=== PATIENT | male | born 1945 | race Caucasian/White ===

== ENCOUNTER → 2021-08-20 | Day surgery (SDC) | payer OTHER, BC ==
[~2021-08-20] VITALS: Ht 177.8 cm; Wt 73.0 kg
[~2021-08-20] MED LIST: FLONASE 0.05%50 MCG NARES; MULTI VITAMIN1 EACH PO; PROAIR HFA8.5 GM INH; TRAMADOL 50 MG50 MG PO; XARELTO20 MG PO
[2021-08-20 10:38] VITALS: BP 105/67
[2021-08-20 14:14] VITALS: BP 105/67
--- NOTE | 2021-08-22 11:43 | O ---
[facility] [place] [address] OPERATIVE REPORT Name: LEONIDAS JARA Room #: REG [facility]..#: [id number] Admission: 08/20/21 Attend Phys: Dexter Centeno MD Discharge: Date of : 41 Report #: [id number] THIS REPORT FOR: cc: Dexter Centeno MD,[facility] Dexter Centeno MD ~ cc: Clem Irving DATE OF SERVICE: 08/20/2021 PREOPERATIVE DIAGNOSES: 1. Basal cell carcinoma, left external ear. 2. Mohs defect, left external ear. PROCEDURE PERFORMED: 1. Adjacent tissue transfer, left ear 10-30 square cm, code 27101. 2. Scar release of the face and ear, code 45147. PRIMARY SURGEON: Dexter Centeno MD ANESTHESIA: General. GLOBAL REGULATORY LEAD: None. COMPLICATIONS: None. ESTIMATED BLOOD LOSS: 10 mL. SPECIMENS: None. COMPLICATIONS: None. IMPLANTS: None. INDICATIONS FOR THE PROCEDURE: The patient is a 76-year-old male with a recent history of basal cell carcinoma of the left external ear, for which he underwent Mohs micrographic excision approximately 6 days ago. He was referred to me for formal reconstruction and was counseled about the above-named procedures and signed consent in the office. DESCRIPTION OF PROCEDURE: The patient was identified in the preoperative area before being transported to the operating room and placed supine on the operating table. At this point, general anesthesia was induced, a timeout was called to ensure patient identity and procedure to be performed. Once all were in agreement, the table was rotated 90 degrees. The left ear was injected with 1% lidocaine with 1:100,000 epinephrine solution and prepped and draped in the [facility] [address] [place] [address] OPERATIVE REPORT Name: LEONIDAS JARA Room #: REG [facility]..#: [id number] Admission: 08/20/21 Attend Phys: Dexter Centeno MD Discharge: Date of : 41 Report #: [id number] normal sterile fashion. Starting first sharp excision of the wound edges and freshening of them was performed using a combination of tenotomy scissor and #15 blade scalpel. Judicious cartilage trimming was performed in preparation for closure. At first, the plan was to form a postauricular advancement flap and cover the ear in a first stage with plan to come back in approximately three to four weeks for the second stage and creation of a new antihelix and helical rim. However, upon closer inspection, this was not a good reconstructive option; therefore, I elected to perform superior and inferior advancement flaps of the helical rim and resection of a portion of the conchal bowl to allow closure. This resulted in a significantly contracted ear; however, it maintained relatively normal ear architecture and therefore, I chose to pursue this as the reconstructive option. This was closed in layers using many 4-0 Monocryl suture to reapproximate the cartilage and deeper layers of the ear followed by 5-0 plain gut suture to reapproximate the skin edges along the helical rim and within the conchal bowl and antihelical area and then the postauricular area. There was a small amount of skin trimming that had to be performed postauricularly and again this was then closed using 5-0 plain gut suture. At this point, the patient was thoroughly cleansed. All incisions were coated with antibiotic ointment. The conchal bowl and anterior ear were packed with cotton balls followed by placement of a [place] ear dressing over the left ear. This resulted in very good functional and cosmetic outcome and I elected to conclude the procedure at this point. The patient was reversed from anesthesia and transported to PACU in stable condition. Please note that all instrument, sponge and needle counts were correct x2. DISPOSITION: The patient will be discharged after meeting general discharge criteria in the PACU. He has been given prescriptions for pain medication and antibiotics to be used as directed. He should leave the [place] ear dressing in place for 72 hours followed by removal and daily cleaning as directed and postoperative instructions that have been both verbally and written communicated to the patient's and son. They will follow up with me in approximately 10 days' time for postoperative wound check. They may call our office with any issues. <ELECTRONICALLY SIGNED> By: Dexter Centeno MD 08/22/21 [id number] Dexter Centeno MD /nt
== END | disposition home or self-care (01) ==
LOC: OR 06:11
PROVIDERS: ATTEND Otolaryngology
DX: C44.219 Basal cell carcinoma of skin of left ear and external auricular canal (principal); L90.5 Scar conditions and fibrosis of skin; Z98.890 Other specified postprocedural states; Z79.899 Other long term (current) drug therapy; Z20.822 Contact with and (suspected) exposure to COVID-19; Z96.643 Presence of artificial hip joint, bilateral; Z90.49 Acquired absence of other specified parts of digestive tract; Z98.41 Cataract extraction status, right eye; Z98.42 Cataract extraction status, left eye; Z85.820 Personal history of malignant melanoma of skin; Z87.891 Personal history of nicotine dependence
CPT/HCPCS: 50010; 50101; 50386; 50403; 51412; 56524; 56526; 57006; 62110; 62900; 70005